=== PATIENT | male | born 1955 | race African-American/Black ===

== ENCOUNTER 2020-12-20 16:30 | Emergency (ER) | payer OTHER ==
--- OUTSIDE RECORDS SUMMARY | 2020-12-20 16:32 | XMS REPORT | Continuity of Care Document ---
:1955 Author Organization [facility] t Address [address] [place] [address] Care Team Providers Name Role Phone Mckinley Brooks MD Attending Clinician Cristobal ARANGO, K.H. Attending Clinician Problems This patient has no known problems. Allergies, Adverse Reactions, Alerts This patient has no known allergies or adverse reactions. Medications This patient has no known medications. Procedures This patient has no known procedures. Encounters Start End Encounter Admission Attending Care Care Encounter Source Date/Time Date/Time Type Type Clinicians Facility Department ID 2020-11-24 2020-11-24 Refill MIMI Brooks [id number] 00:00:00 00:00:00 Rahul Pabon [id number] Mckinley Soto [id number] Professelizabeth [phone] nal 044 Building 2020-10-14 2020-10-14 Office MIMI Jain [id number] 12:51:15 13:23:43 Visit Popeye Pabon [id number] Charles [id number] Professio [phone] nal 059 [facility] Results This patient has no known results.
--- NOTE | 2020-12-20 18:25 | ER ---
Nurse's Notes [facility] Name: Ravinder Walsh Age: 65 yrs Sex: Male : 1955 Arrival Date: 12/20/2020 Time: 16:36 Bed 24 Private MD: Diagnosis: Cellulitis of right lower limb Presentation: 12/20 17:16 Chief complaint: Patient states: RLE redness. Rash area getting slowly bigger for 2 ll1 weeks. Drains scant amount of clear liquid now. No fever. Coronavirus screen: Client denies travel out of the [place] in the last 14 days. At this time, the client does not indicate any symptoms associated with coronavirus-19. Ebola Screen: Patient denies travel to an Ebola-affected area in the 21 days before illness onset. Initial Sepsis Screen: Does the patient meet any 2 criteria? No. Patient's initial sepsis screen is negative. Does the patient have a suspected source of infection? Yes: Skin breakdown/wound. Risk Assessment: Do you want to hurt yourself or someone else? Patient reports no desire to harm self or others. Onset of symptoms was December 06, 2020. 17:16 Method Of Arrival: Ambulatory ll1 17:16 Acuity: MICHAEL 3 ll1 Historical: - Allergies: 17:19 No Known Allergies; ll1 - PMHx: 17:19 blood clots lungs-eliquis; Hypertension; ll1 - PSHx: 17:19 None; ll1 - Immunization history:: Client reports receiving the 2nd dose of the Covid vaccine, Flu vaccine is up to date. Last tetanus immunization: > 10 years ago. - Social history:: Smoking status: Smoking status: Patient denies any tobacco usage or history of. Screenin:50 Abuse screen: Denies threats or abuse. Denies injuries from another. Nutritional zb screening: No deficits noted. Tuberculosis screening: No symptoms or risk factors identified. Fall Risk None identified. Assessment: 17:51 General: Appears in no apparent distress. comfortable, Behavior is calm, cooperative, zb appropriate for age. Pain: Denies pain. Neuro: Level of Consciousness is awake, alert, obeys commands, Oriented to person, place, time, situation. Cardiovascular: Patient's skin is warm and dry. Cardiovascular: Edema is 2+ to left midcalf, right midcalf, right ankle, right foot and right toes. Respiratory: No deficits noted. Derm: Wound noted lateral aspect of right knee, posterior aspect of right knee, right calf and medial aspect of right thigh Denies itching, burning, pain. Musculoskeletal: Circulation, motion, and sensation intact. Range of motion: intact in all extremities. 19:08 Reassessment: Patient appears in no apparent distress at this time. Patient and/or zb family updated on plan of care and expected duration. Pain level reassessed. Patient is alert, oriented x 3, equal unlabored respirations, skin warm/dry/pink. wound cleaned, dressing applied. discussed wound care. d/c instructions given. patient ambulated out with . Vital Signs: 17:16 BP 163 / 89; Pulse 91; Resp 17; Temp 98.3; Pulse Ox 100% ; Weight 116.12 kg; Height 6 ll1 ft. 0 in. (182.88 cm); Pain 0/10; 17:52 BP 128 / 79; Pulse 73; Resp 16; Pulse Ox 100% on R/A; zb 17:16 Body Mass Index 34.72 (116.12 kg, 182.88 cm) ll1 ED Course: 16:36 Patient arrived in ED. am4 17:18 Triage completed. ll1 17:18 Arm band placed on Patient placed in an exam room, on a stretcher. ll1 17:22 Juliann Gonzalez RN is Primary Nurse. zb 17:25 Michelet Saldaña NP is PHCP. pm1 17:25 Christiano Bazzi MD is Attending Physician. pm1 17:52 Patient has correct armband on for positive identification. Fall risk band placed. zb Placed in gown. Bed in low position. Call light in reach. Side rails up X 1. Adult w/ patient. Pulse ox on. NIBP on. Door closed. 19:10 No provider procedures requiring assistance completed. Patient did not have IV access zb during this emergency room visit. 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 Exp: zb 01/12/2022. Lot #: [id number]. } Route: IM; Site: right deltoid; 19:08 Follow up: Response: No adverse reaction zb 18:48 Drug: Bactroban (mupirocin) Ointment 2 % 1 application Route: Topical; Site: affected zb area; 19:08 Follow up: Response: No adverse reaction zb 18:48 Drug: Clindamycin 600 mg Route: IM; Site: right deltoid; zb 19:08 Follow up: Response: No adverse reaction zb Outcome: 18:24 Discharge ordered by MD. pm1 19:10 Discharged to home ambulatory, with family. zb 19:10 Condition: stable 19:10 Discharge instructions given to patient, family, Instructed on discharge instructions, follow up and referral plans. medication usage, Demonstrated understanding of instructions, follow-up care, medications, Prescriptions given X 2. 19:10 Patient left the ED. zb Signatures: Michelet Saldaña NP AUTOMOBILE SEAT COVER INSTALLER pm1 Cathleen Sanchez RN RN ll1 Juliann Gonzalez RN RN Marilou Pringle 4
--- NOTE | 2020-12-20 18:26 | EDPHYS ---
Physician Documentation [facility] Name: Ravinder Walsh Age: 65 yrs Sex: Male : 1955 Arrival Date: 12/20/2020 Time: 16:36 Bed 24 Private MD: ED Physician Christiano Bazzi HPI: 12/20 18:26 This 65 yrs old Black Male presents to ER via Ambulatory with complaints of Irritation pm1 to leg. 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 pm1 The rash is located on the medial aspect of right knee and medial aspect of right calf. The rash can be described as crusted, flat. 18:26 Onset: The symptoms/episode began/occurred 2 week(s) ago. Associated signs and pm1 symptoms: Pertinent positives: clear drainage from wound, Pertinent negatives: fever. Severity of symptoms: in the emergency department the symptoms are worse Pain is currently a 0 / 10. Treatment given at home: triple antibiotics. The patient has not experienced similar symptoms in the past. The patient has not recently seen a physician. Historical: - Allergies: 17:19 No Known Allergies; ll1 - PMHx: 17:19 blood clots lungs-eliquis; Hypertension; ll1 - PSHx: 17:19 None; ll1 - Immunization history:: Client reports receiving the 2nd dose of the Covid vaccine, Flu vaccine is up to date. Last tetanus immunization: > 10 years ago. - Social history:: Smoking status: Smoking status: Patient denies any tobacco usage or history of. ROS: 18:26 Constitutional: Negative for fever, chills, and weight loss, Cardiovascular: Negative pm1 for chest pain, palpitations, and edema, Respiratory: Negative for shortness of breath, cough, wheezing, and pleuritic chest pain, Abdomen/GI: Negative for abdominal pain, nausea, vomiting, diarrhea, and constipation, Back: Negative for injury and pain, MS/Extremity: Negative for injury and deformity. 18:26 Neuro: Negative for headache, weakness, numbness, tingling, and seizure. 18:26 Skin: Positive for rash, of the medial aspect of right calf and medial aspect of right knee. Exam: 18:26 Constitutional: This is a well developed, well nourished patient who is awake, alert, pm1 and in no acute distress. Head/Face: Normocephalic, atraumatic. 18:26 Cardiovascular: Rate: normal, Rhythm: regular, Pulses: no pulse deficits are appreciated. 18:26 Respiratory: Exam negative for acute changes, respiratory distress, shortness of breath, the patient does not display signs of respiratory distress. 18:26 Abdomen/GI: Inspection: abdomen appears normal, Palpation: abdomen is soft and non-tender, in all quadrants. 18:26 Skin: Appearance: normal except for affected area, abscess, not appreciated, cellulitis, that is minimal, on the medial aspect of right calf and medial aspect of right knee. 18:26 Neuro: Exam negative for acute changes, Orientation: is normal, Mentation: is normal, Motor: is normal, moves all fours, Sensation: is normal, no obvious gross deficits, Gait: is steady, at a normal pace, without difficulty. Vital Signs: 17:16 BP 163 / 89; Pulse 91; Resp 17; Temp 98.3; Pulse Ox 100% ; Weight 116.12 kg; Height 6 ll1 ft. 0 in. (182.88 cm); Pain 0/10; 17:52 BP 128 / 79; Pulse 73; Resp 16; Pulse Ox 100% on R/A; zb 17:16 Body Mass Index 34.72 (116.12 kg, 182.88 cm) ll1 MDM: 17:25 Patient medically screened. pm1 18:24 Data reviewed: vital signs. Data interpreted: Pulse oximetry: on room air is 100 %. pm1 Interpretation: normal. Counseling: I had a detailed discussion with the patient and/or guardian regarding: the historical points, exam findings, and any diagnostic results supporting the discharge/admit diagnosis, the need for outpatient follow up, a family practitioner, to return to the emergency department if symptoms worsen or persist or if there are any questions or concerns that arise at home. 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 Exp: zb 01/12/2022. Lot #: [id number]. } Route: IM; Site: right deltoid; 19:08 Follow up: Response: No adverse reaction zb 18:48 Drug: Bactroban (mupirocin) Ointment 2 % 1 application Route: Topical; Site: affected zb area; 19:08 Follow up: Response: No adverse reaction zb 18:48 Drug: Clindamycin 600 mg Route: IM; Site: right deltoid; zb 19:08 Follow up: Response: No adverse reaction zb Disposition: 12/21 07:30 Co-signature as Attending Physician, Christiano Bazzi MD I agree with the assessment and babatunde plan of care. Disposition: 12/20/20 18:24 Discharged to Home. Impression: Cellulitis of right lower limb. - Condition is Stable. - Discharge Instructions: Cellulitis, Adult. - Prescriptions for Bactroban 2 % Topical Ointment - Apply to affected area 1 application by TOPICAL route every 12 hours; 30 gram. Bactrim DS 800- 160 mg Oral Tablet - take 1 tablet by ORAL route every 12 hours for 10 days; 20 tablet. - Medication Reconciliation Form, Thank You Letter, Antibiotic Education, Prescription Opioid Use form. - Follow up: Emergency Department; When: As needed; Reason: Worsening of condition. Follow up: Private Physician; When: 2 - 3 days; Reason: Recheck today's complaints, Continuance of care, Re-evaluation by your physician. - Problem is new. - Symptoms have improved. Signatures: Christiano Bazzi MD MD cha Marinas, Patrick, SUPERVISOR REACTOR FUELING SUPERVISOR REACTOR FUELING pm1 Cathleen Sanchez RN RN ll1 Juliann Gonzalez RN RN zb Corrections: (The following items were deleted from the chart) 12/20 19:10 18:24 12/20/2020 18:24 Discharged to Home. Impression: Cellulitis of right lower limb. zb Condition is Stable. Forms are Medication Reconciliation Form, Thank You Letter, Antibiotic Education, Prescription Opioid Use. Follow up: Emergency Department; When: As needed; Reason: Worsening of condition. Follow up: Private Physician; When: 2 - 3 days; Reason: Recheck today's complaints, Continuance of care, Re-evaluation by your physician. Problem is new. Symptoms have improved. pm1
[2020-12-20] MEDS ORDERED: CLINDAMYCIN IV 150 MG/ML (4 mL) VIAL ONE (18:58)
[2020-12-20] MEDS ORDERED: MUPIROCIN 2% OINT 22GM TUBE TOP ONE (18:58)
[2020-12-20] MEDS ORDERED: TETANUS & DIPHTHERIA TOX,ADULT 0.5 ML VIAL ONE (18:58)
[2020-12-20 19:16] VITALS: TEMP 98.3; O2SAT 100
[2020-12-20 19:17] VITALS: BP 128/79
== END 2020-12-20 19:10 | disposition home or self-care (01) ==
LOC: ER 16:30
DX: L03.115 Cellulitis of right lower limb (principal); I10 Essential (primary) hypertension; Z23 Encounter for immunization
CPT/HCPCS: 90471; 90714; 96372; 99283; S0077